=== PATIENT | female | born 1940 | race Two or more races ===

== ENCOUNTER 2022-11-28 14:54 | Emergency (ER) | payer OTHER ==
[~2022-11-28] VITALS: Ht 175.3 cm; Wt 107.8 kg
[2022-11-28 16:11] LABS: Basophils # (auto) 0 10 ^3/uL (0-0.2); Basophils % (auto) 0.4 % (0.0-2.0); Eosinophils # (auto) 0.1 10 ^3/uL (0-0.8); Eosinophils % (auto) 1.7 % (0.0-7.0); Hematocrit 39.7 % (36.0-46.0); Hemoglobin 13.2 g/dL (12.2-16.2); Lymphocytes # (auto) 1.6 10 ^3/uL (0.4-5.4); Lymphocytes % (auto) 28.2 % (10.0-50.0); Mean Corpuscular Hemoglobin 31.5 pg (28.0-32.0); Mean Corpuscular Hgb Conc. 33.2 g/dL (32.0-36.0); Mean Corpuscular Volume 94.9 fL (80.0-100.0); Monocytes # (auto) 0.7 10 ^3/uL (0-1.3); Monocytes % (auto) 11.8 % (0.0-12.0); Neutrophils # (auto) 3.3 10 ^3/uL (1.6-8.6); Neutrophils % (auto) 57.9 % (37.0-80.0); Nucleated Red Blood Cells % 0.1 %; Red Blood Cells 4.18 10^6/uL (4.0-5.20); Red Cell Distribution Width 13.2 % (11.8-14.3); White Blood Cell 5.8 10^3/uL (4.4-10.8)
[2022-11-28 16:16] LABS: Albumin 3.3 g/dL (3.4-5.0); Anion Gap 7 (5-15); BUN/Creatinine Ratio 23.2 (10.0-20.0); Blood Urea Nitrogen 22 mg/dL (7-18); Carbon Dioxide 27 mmol/L (21-32); Chloride 107 mmol/L (98-107); GFR African American 73 mL/min; GFR Non-African American 60 mL/min; Glucose 129 mg/dL (74-106); Potassium 4.1 mmol/L (3.5-5.1); Sodium 141 mmol/L (136-145)
[2022-11-28 16:25] LABS: Alanine Aminotransferase 27 U/L (13-56); Alkaline Phosphatase 89 U/L (45-117); Aspartate Aminotransferase 26 U/L (15-37); Bilirubin, Total 0.8 mg/dL (0.2-1.0); Total Protein 7.3 g/dL (6.4-8.2)
[2022-11-28 17:08] LABS: INR 1.09 (0.9-1.15); Partial Thromboplastin Time 26.4 SEC (24.5-34.5)
[2022-11-28 20:10] VITALS: BP 193/85
[2022-11-28] MEDS ORDERED: cloNIDine HCL 0.1 MG TAB PO ONE (20:30)
[2022-11-28 21:49] LABS: Urine Blood 3+ /uL (Negative)
[2022-11-28 21:57] LABS: Urine Bacteria NONE SEEN /hpf (None Seen); Urine WBC 3588 /hpf (0 - 5)
[2022-11-28 22:04] LABS: Urine Specific Gravity 1.025 (1.001-1.035)
== END 2022-11-28 23:52 | disposition left against medical advice (07) ==
LOC: ER 14:54 → EDSEX 14:54 → ER 23:52
DX: N93.9 Abnormal uterine and vaginal bleeding, unspecified (principal); R07.9 Chest pain, unspecified; I10 Essential (primary) hypertension; Z85.9 Personal history of malignant neoplasm, unspecified; Z90.710 Acquired absence of both cervix and uterus
CPT/HCPCS: 36415; 74176; 80053; 81001; 84484; 85025; 85610; 85730; 86850; 86900; 86901